=== PATIENT | female | born 1955 | race Caucasian/White ===

== ENCOUNTER → 2016-03-13 | Outpatient (CLI) | payer MEDICARE | LOC: GMAJ 15:00 | PROVIDERS: ATTEND Family Medicine | DX: N18.3 Chronic kidney disease, stage 3 (moderate) (principal) ==

== ENCOUNTER → 2016-03-22 | Outpatient (CLI) | payer MEDICARE | LOC: GMAJ 13:08 | PROVIDERS: ATTEND Family Medicine | DX: N18.3 Chronic kidney disease, stage 3 (moderate) (principal) ==

== ENCOUNTER → 2016-04-02 | Outpatient (CLI) | payer MEDICARE | LOC: GMAJ 15:49 | PROVIDERS: ATTEND Family Medicine | DX: R30.0 Dysuria (principal) ==

== ENCOUNTER → 2016-04-29 | Outpatient (CLI) | payer MEDICARE | END | disposition home or self-care (01) | LOC: GMAJ 10:16 | PROVIDERS: ATTEND Family Medicine | DX: E03.9 Hypothyroidism, unspecified (principal) ==

== ENCOUNTER 2016-05-14 17:56 | Inpatient (IN) | payer MEDICARE ==
[2016-05-14] MEDS ORDERED: ONDANSETRON INJ 4 MG/2 ML VIAL IV ONE (18:19)
[2016-05-14] MEDS ORDERED: SODIUM CHLORIDE 0.9% 250ML 250 ML IVS ONE (18:19)
--- NOTE | 2016-05-14 18:23 | ED.PDOC ---
History of Present Illness - General Chief Complaint: GI Problem Stated Complaint: vomiting,diarrhea Time Seen by Provider: 05/14/16 18:10 Source: patient Exam Limitations: no limitations - History of Present Illness Initial Comments: Patient presents with 1 1/2 weeks of N/V/D. She says the vomiting typically occurs just after a meal. It is non-bilious. Her diarrhea is non-bloody. She has bilateral lower abdominal pain that is constant and cramping. It improves after vomiting but she has not noticed a difference after a bowel movement. She had a previous episode 6 months ago. No other associated symptoms. She has IDDM and says that her blood sugars have been running high the past two days despite very little food intake. No sick contacts. No urinary sx. No recent antibiotic use. Timing/Duration: other - 1 1/2 weeks Severity: moderate Improving Factors: nothing Worsening Factors: eating Associated Symptoms: nausea/vomiting, other - diarrhea Allergies/Adverse Reactions: Allergies Sulfa Antibiotics Allergy (Severe, Verified 08/19/15 19:07) Vomitting Home Medications: Ambulatory Orders HYDROcodone 10MG/APAP 325MG [[place] 10/325] 1 tab PO QID 11/11/13 Spironolactone [Aldactone] 25 mg PO DAILY #30 tab 10/03/14 Levothyroxine Sodium [Synthroid] 200 mcg PO DAILY@0700 05/17/15 Furosemide [Lasix] 40 mg PO BID 05/14/16 Insulin Aspart [Novolog Flexpen] 10 unit SC TIDFD 05/14/16 Insulin Detemir [Levemir Pen] 25 units SUBCU BEDTIME 05/14/16 Metolazone 2.5 mg PO DAILY 05/14/16 Potassium Chloride [K-Tab] 20 meq PO QAM 05/14/16 Review of Systems - Review of Systems Constitutional: States: see HPI EENTM: States: no symptoms reported Respiratory: States: no symptoms reported Cardiology: States: no symptoms reported Gastrointestinal/Abdominal: States: no symptoms reported Genitourinary: States: no symptoms reported Musculoskeletal: States: no symptoms reported Skin: States: no symptoms reported Neurological: States: no symptoms reported Endocrine: States: see HPI Hematologic/Lymphatic: States: no symptoms reported Past Medical History (General) - Patient Medical History Hx Seizures: No Hx Stroke: Yes - Per Medical record Hx Asthma: No Hx of COPD: Yes Hx Cardiac Disorders: Yes - CHF Hx Congestive Heart Failure: Yes Hx Pacemaker: No Hx Hypertension: Yes Hx Thyroid Disease: Yes Hx Diabetes: Yes Hx Gastroesophageal Reflux: Yes Hx Renal Disease: - Spot on one of kidneys however, unsure which one. Hx Cancer: Yes - Cervical Hx Hepatitis C: No Hx MRSA: No Surgical History: Hysterectomy - Vaccination History Hx Tetanus, Diphtheria Vaccination: No Hx Influenza Vaccination: No Hx Pneumococcal Vaccination: No - Social History Hx Tobacco Use: Yes Hx Chewing Tobacco Use: No Hx Alcohol Use: No Hx Substance Use: No Hx Substance Use Treatment: No Hx Depression: No Hx Physical Abuse: No Hx Emotional Abuse: No Hx Suspected Abuse: No - Female History Patient : No Family Medical History - Family History Mother Family History: Unknown Name: pt adopted Physical Exam - Physical Exam General Appearance: Alert Ears, Nose, Throat: normal ENT inspection Neck: non-tender, full range of motion, supple Respiratory: wheezing, other - expiratory wheezing in all lung mensah Cardiovascular/Chest: regular rate, rhythm Gastrointestinal/Abdominal: normal bowel sounds, non tender, soft Back Exam: no CVA tenderness Extremity: no pedal edema Neurologic: managing consultant clinical professor II-XII nml as tested, no motor/sensory deficits, alert Skin Exam: normal color Lymphatic: no adenopathy Progress - Progress Progress: 05/14/16 19:59 Patient received NS 250 ml IV bolus and zofran 4 mg IV x one. Cr was 2.72 which represents acute renal insufficiency for her. Blood sugar 272. CT abdomen/pelvis without contrast showed no acute gastrointestinal pathology but there was a questionable area of attenuation at the level of the spleen. Patient admitted for dehydration and PREET. Laboratory Tests 05/14/16 18:30 WBC 11.8 H RBC 5.51 H Hgb 16.3 H Hct 48.3 H MCV 87.6 MCH 29.5 MCHC 33.8 RDW 15.7 H Plt Count 240 MPV 7.9 Absolute Neuts (auto) 8.80 H Absolute Lymphs (auto) 1.90 Absolute Monos (auto) 0.80 Absolute Eos (auto) 0.20 Absolute Basos (auto) 0.10 Neutrophils % 74.8 Lymphocytes % 16.3 L Monocytes % 6.8 Eosinophils % 1.3 Basophils % 0.8 Sodium 139 Potassium 5.0 Chloride 102 Carbon Dioxide 27 Anion Gap 15.0 BUN 61 H Creatinine 2.72 H BUN/Creatinine Ratio 22.4 H Random Glucose 272 H Serum Osmolality 304.4 H Calcium 9.3 Total Bilirubin 0.4 AST 15 ALT 13 Alkaline Phosphatase 103 B-Natriuretic Peptide 185.0 H Serum Total Protein 7.7 Albumin 3.4 Globulin 4.3 H Albumin/Globulin Ratio 0.8 L Lipase 24 Urine Color Yellow Urine Appearance Sl cloudy Urine pH 5.5 Ur Specific [place] 1.020 Urine Protein >=300 H Urine Glucose (UA) 250 H Urine Ketones Trace Urine Blood Small H Urine Nitrite Negative Urine Bilirubin Negative Urine Urobilinogen 0.2 Ur Leukocyte Esterase Negative Urine RBC 0-1 Urine WBC 0-1 Ur Epithelial Cells 0-1 Amorphous Sediment 1+ Urine Bacteria 0 Departure - Departure Clinical Impression: Diarrhea, Vomiting, Moderate dehydration Disposition: Admit Patient Condition: Good Departure Forms: ED Discharge - Pt. Copy, Patient Portal Self Enrollment Diet: other - advance diet as per hospitalist Home Medications: Ambulatory Orders HYDROcodone 10MG/APAP 325MG [[place] 10/325] 1 tab PO QID 11/11/13 Spironolactone [Aldactone] 25 mg PO DAILY #30 tab 10/03/14 Levothyroxine Sodium [Synthroid] 200 mcg PO DAILY@0700 05/17/15 Furosemide [Lasix] 40 mg PO BID 05/14/16 Insulin Aspart [Novolog Flexpen] 10 unit SC TIDFD 05/14/16 Insulin Detemir [Levemir Pen] 25 units SUBCU BEDTIME 05/14/16 Metolazone 2.5 mg PO DAILY 05/14/16 Potassium Chloride [K-Tab] 20 meq PO QAM 05/14/16
[2016-05-14] MEDS ORDERED: SODIUM CHLORIDE 0.9% 1000ML 1,000 ML IVS PRN ×2 (19:33→21:26)
[2016-05-14] MEDS ORDERED: SODIUM CHLORIDE 0.9% 1000ML 1,000 ML ONE (19:35)
--- NOTE | 2016-05-14 19:51 | CT ---
EXAM DESCRIPTION: CT Abdoment/Pelvis w/o Contrast CLINICAL HISTORY: N/V/D abdominal pain COMPARISON: August 08, 2013 June 07, 2014 TECHNIQUE: Contiguous axial images of the abdomen and pelvis were obtained followed by reconstruction images. FINDINGS: There are bilateral low-attenuation masses, with Hounsfield units of zero and -4, within the adrenal glands compatible with adrenal adenomas, both measuring approximately 4 cm. There is atherosclerosis. There are nonobstructive calcification projecting within the renal hilum bilaterally. There is no hydronephrosis. Patient is status post hysterectomy. Calcifications within the pelvis compatible with phleboliths. There is an umbilical hernia with fatty component only. There is a small hepatic cyst. There is a focal area of low-attenuation within the posterior aspect of the spleen measuring approximately 2.8 cm which could represent a splenic infarct. This is a new finding when compared with the prior exam. If indicated correlation with a contrast enhanced CT recommended. the liver, spleen, pancreas and kidneys are otherwise within normal limits. The gallbladder is unremarkable by CT criteria. Aorta is of normal caliber and tapering. There is no free fluid in the abdomen or pelvis. There is no bowel obstruction. There is no stranding of the mesenteric fat to suggest an inflammatory response. The appendix is within normal limits. There is no pericecal inflammation. IMPRESSION: Area of low-attenuation within the posterior aspect of the spleen, new finding when compared with the prior examination, could be secondary to splenic infarct of unknown age. The adjacent fat is within normal limits. If indicated correlation with a contrast enhanced CT recommended. Electronically signed by: Kiko Jean MD 05/14/2016 7:49 PM CDT
--- NOTE | 2016-05-14 20:20 | HP ---
SUPERVISING PHYSICIAN: Chandra Crespo MD CHIEF COMPLAINT: Nausea, vomiting, diarrhea. HISTORY OF PRESENT ILLNESS: Ms. Souza is a 60-year-old, female that presented to the Emergency Department complaining of over seven days of nausea, vomiting and diarrhea. She notes the vomiting typically occurs after she eats a meal. She denies any bloody diarrhea. She does have some bilateral lower abdominal pain that appears to be constant and cramping, but improves after vomiting. She has not noticed any difference in her bowel movements. She notes she has had these previous episodes six months ago, last being admitted in January. Her history is significant for insulin dependent diabetes mellitus and notes her blood sugars have been fairly poorly controlled in the last several days although she denies withholding any food and continues utilize her insulin. She denies any family contacts that are ill and has not been on any recent antibiotics. Additional significant history is that she has chronic renal disease, stage 3, that is being followed by Dr. Chang. Today in the Emergency Department laboratory studies showed she had a white count of 11.8 with chemistries indicating an elevated BUN of 61 as well as creatinine of 2.72. Lipase was normal at 24. She was afebrile on presentation to the Emergency Department, however, she was quite hypertensive because she had not been taking her medications over the last several days which included multiple diuretics and lisinopril. With her history of diabetes controlled by insulin and multiple days of inability to hold any significant oral intake in and notable increase in her BUN and creatinine, the patient is to be admitted for further treatment, evaluation and initiation of IV therapy to assist with rehydration. She was admitted to the Medical/Surgical Floor in stable condition. PAST MEDICAL HISTORY: 1. Chronic renal disease, stage 3, by history. 2. Chronic congestive heart failure, diastolic, with last documented ejection fraction noted on 10/20/14 at 60%. 3. Diabetes mellitus, type 2, on insulin therapy, poorly controlled. She has been on insulin for over three years. 4. History of hypertension. 5. History of hematuria. 6. Chronic obstructive pulmonary disease in a chronic smoker. 7. Chronic pain management on hydrocodone. 8. Hypothyroidism after thyroid goiter removed by surgery. 9. History of gastroesophageal reflux disease. 10. Opioid induced constipation. PAST SURGICAL HISTORY: 1. Thyroidectomy with portion of thyroid removed resulting in hypothyroidism from surgery to remove a goiter. 2. Hysterectomy/oophorectomy. CURRENT MEDICATIONS: Please refer to electronic medical record for an updated list of verified medications. ALLERGIES: SULFA DRUGS. FAMILY HISTORY: The patient is adopted, but she knows there is some coronary artery disease and cancers in her family. SOCIAL HISTORY: The patient is disabled. She has worked at [employer] in the past. She currently smokes approximately one pack a day of cigarettes. She lives at home with her . She denies any alcohol or illicit drug use. REVIEW OF SYSTEMS: CONSTITUTIONAL: Denies any significant fevers, chills. She notes she has had some weakness over the last several days. HEENT: No complaints. RESPIRATORY: No significant shortness of breath. She has a history of congestive heart failure and has some shortness of breath with exertional effort , but reports no cough or shortness of breath currently. CARDIOVASCULAR: Denies significant chest pain or palpitations. She does have a history of congestive heart failure with episodes of anasarca in the past and is on multiple diuretics. GASTROINTESTINAL: Significant as in history of present illness for nausea, vomiting with some diarrhea in the last 24 hours with a history of chronic constipation. She denies any faisal blood or hemoptysis. GENITOURINARY: Denies dysuria. EXTREMITIES: She does have a history of lower extremity edema, but notes she has not had any increasing edema in the last week or so. NEUROLOGIC: She reports no focal motor deficits, but is quite weak secondary to poor oral intake. PHYSICAL EXAMINATION: VITAL SIGNS: Temperature 96.5. Pulse 69. Initial blood pressure in the Emergency Department was 204/76. Respirations 20. O2 saturation 96% on room air. After treatment in the Emergency Room, blood pressure at time of admission to the Medical/Surgical Floor was 195/74. Respirations 18. Other 95 % on room air. Admission weight 71.2 kg. GENERAL: The patient appears to be in no acute distress, but she does look dehydrated and weak. HEENT: Tympanic membranes clear bilaterally. Oropharynx is pink, but dry mucous membranes. No notable lesions. She does have mild exophthalmia noted, which is chronic. NECK: No jugular venous distention noted. The patient does have history of hypothyroidism and a previous goiter. CHEST: Lungs clear to auscultation bilaterally without any rhonchi, wheezes, or rales. CARDIOVASCULAR: Regular rate and rhythm without any appreciable murmurs, gallops, or rubs. ABDOMEN: Obese, but, nontender. There is no rebound tenderness. Positive bowel sounds. EXTREMITIES: There is no notable edema, cyanosis or clubbing. NEUROLOGIC: The patient is alert and oriented times three. There are no focal neuromotor deficits noted. LABORATORY: White count on admission 11.8, hemoglobin 16.3, hematocrit 40.3, platelet count 240,000, differential showed no left shift. Chemistries initially showed normal electrolytes with potassium 5.0, BUN elevated at 61, creatinine 2.72, serum osmolality 304. Liver functions were within normal limits. BNP was slightly elevated at 185, magnesium 2.6. Urine showed greater than 300 protein with 250 glucose, small amount of blood. Microscopic was within normal limits. Serum ketones were negative. RADIOLOGY: Abdominopelvic CT without contrast prior to admission and per radiology interpretation was noted a low area of attenuation within the posterior aspect of the spleen, which is a new finding compared to previous examinations which could be secondary to splenic infarction of unknown age. Adjacent fat was within normal limits. No other acute processes were noted. ASSESSMENT: 1. Nausea and vomiting for multiple days with poor oral intake and inability to take oral medications, unknown etiology, possibly secondary to complications of diabetes to include gastroparesis versus gastritis versus a viral infection. 2. Leukocytosis, likely secondary to some demargination from active emesis within the last 24 to 48 hours versus possible viral gastroenteritis. 3. Type 2 diabetes mellitus on insulin, poorly controlled, possibly contributing to #1 from complications such as gastroenteritis. 4. Possible splenic infarct as noted on CT findings which could possibly contribute to some degree of her nausea and vomiting, although the patient is without any significant abdominal pain. 5. History of chronic congestive heart failure with diastolic component with last ejection fraction noted in October 2014 to be 60% with elevated BNP on admission. 6. History of chronic renal failure, stage 3, currently being followed by Dr. Chang. 7. Moderate dehydration secondary to #1, possibly exacerbating her renal insufficiency, elevating her BUN and creatinine secondary to multiple days of emesis and diarrhea with poor oral intake. 8. Chronic obstructive pulmonary disease in a chronic smoker. 9. Hypertension, poorly controlled secondary to poor medication regimen due to current illness with nausea and vomiting. 10. Chronic pain status on opioids. 11. History of opioid induced constipation with intermittent episodes of diarrhea. PLAN: The patient will be placed in observation tonight and started on IV therapy to assist with hydration. Given that she has a significant history of anasarca and congestive heart failure, we will slowly hydrate her with half normal saline at 80 an hour. She was given an initial 250 mL bolus of normal saline in the Emergency Department. We will start on Protonix IV as well as Zofran to assist with limiting nausea and vomiting. Stool workup is pending should she have a significant amount of diarrhea to include stool cultures, leukocytes, occult blood, and Giardia antigens. Plan to reevaluate in the morning with an abdominal series, upright and flat and repeat laboratory studies including CBC, lipase, and CMP. We will continue to monitor the patient closely. Anticipate length of stay to be 1 to 2 days. Until then, we will continue to monitor the patient closely and treat appropriately. Dr. Crespo is the collaborating physician and available for consultation. #[id number] #[id number] [facility]
[2016-05-14] MEDS ORDERED: DEXTROSE 50% 25 GM/50 ML SYG IV PRN (21:21)
[2016-05-14] MEDS ORDERED: GLUCAGON INJ 1 MG VIAL SUBCU PRN (21:21)
[2016-05-14] MEDS ORDERED: ONDANSETRON INJ 4 MG/2 ML VIAL IV PRN (21:21)
[2016-05-14] MEDS ORDERED: ACETAMINOPHEN 325 MG TAB PO PRN (21:21)
[2016-05-14] MEDS ORDERED: SODIUM CHLORIDE 0.45% 1000ML 1,000 ML IVS PRN (21:29)
[2016-05-14] MEDS ORDERED: IV SET AND CAP CHANGE INJ INJ SCH (21:30)
[2016-05-14] MEDS ORDERED: NICOTINE PATCH 21 MG TD SCH (22:30)
[2016-05-14] MEDS ORDERED: PANTOPRAZOLE SODIUM IV 40 MG VIAL IV SCH (23:00)
[2016-05-15] MEDS ORDERED: LEVOTHYROXINE SODIUM 0.1 MG TAB ONE (05:26)
[2016-05-15] MEDS: LEVOTHYROXINE SODIUM 0.1 MG TAB PO SCH (06:31)
--- NOTE | 2016-05-15 07:22 | RAD ---
Two view abdomen. Two-view chest. Indication: N/V Comparison: January 13, 2016. Impression: Cardiomegaly. Atherosclerosis aorta. Emphysema with mild left basilar atelectasis. Otherwise, lungs clear. No free air under the diaphragm. Multiple surgical clips mid abdomen. Several loops of mildly dilated air-filled small bowel in the midabdomen measuring up to 3.3 cm. Early small bowel obstruction not excluded. No constipation. Multiple surgical clips in the pelvis. Degenerative changes of the spine noted. Electronically signed by: Nelson Kaplan MD 05/15/2016 7:21 AM CDT
[2016-05-15] MEDS: INSULIN LISPRO 100 UNITS/ML PEN SUBCU SCH ×4 (07:45→21:37)
--- NOTE | 2016-05-15 10:39 | PN ---
SUPERVISING PHYSICIAN: Chandra Crespo MD DATE: 05/15/16 SUBJECTIVE: The patient is lying in bed. She complain of hunger, but she did say that she has not been able to keep anything down. Yesterday, she had some diarrhea, but has not had any stool since then. OBJECTIVE: VITAL SIGNS: Afebrile. Heart rate 61. Blood pressure 163/74. It has gotten as high as 182/70. Respiratory rate 18. O2 saturation has gotten as low as 90% on 2 liters nasal cannula and is now 93%. LUNGS: Clear to auscultation bilaterally. CARDIAC: Regular rate and rhythm. ABDOMEN: Diffusely tender, but very mild. Soft, nondistended. Bowel sounds are positive. EXTREMITIES: No cyanosis or clubbing. She does have a trace of edema on bilateral lower extremities. NEUROLOGIC: Awake, alert and oriented times three. LABORATORY: Sodium 135, potassium 4.9, chloride 107, carbon dioxide 22, BUN 55 , creatinine has come down from 2.72 to 2.17. Glucose 383, serum osmolality 301 , calcium 8.2, magnesium 2.6, serum total protein 5.5, albumin 2.5. White count has normalized down from 11.8 yesterday to 9.2 today. Hemoglobin 14, hematocrit 42, platelet count 180, neutrophils 64.3. Chest x-ray and two view abdomen show cardiomegaly and emphysema with mild left basilar atelectasis. No free air under the diaphragm. Several loops of mildly dilated air-filled small bowel in the mid abdomen measuring up to 3.3 cm with early small bowel obstruction not excluded. No constipation. All other labs and films have been reviewed via the EMR. ASSESSMENT: 1. Nausea and vomiting for multiple days with poor oral intake and inability to take oral medications, unknown etiology, possibly secondary to complications of diabetes to include gastroparesis versus gastritis versus a small bowel obstruction. 2. Small bowel obstruction per abdominal x-ray today. 3. Leukocytosis, now normalized. 4. Possible splenic infarct as noted on CT findings which could possibly contribute to some degree of her nausea and vomiting, although the patient is without any significant abdominal pain. 5. Type 2 diabetes mellitus on insulin. 6. History of chronic congestive heart failure with diastolic component with last ejection fraction noted in October 2014 to be 60% with elevated BNP on admission. 7. History of chronic renal failure, stage 3, currently being followed by Dr. Chang. 8. Moderate dehydration secondary to #1, possibly exacerbating her renal insufficiency, elevating her BUN and creatinine secondary to multiple days of emesis and diarrhea with poor oral intake. 9. Chronic obstructive pulmonary disease in a chronic smoker. 10. Hypertension, poorly controlled secondary to poor medication regimen due to current illness with nausea and vomiting. 11. Chronic pain status on opioids. 12. History of opioid induced constipation with intermittent episodes of diarrhea. PLAN: We will change to an inpatient status. We will continue supportive care. She will be placed NPO and I have spoken to Dr. Chang, her oracle data warehouse developer, in [place]. He recommended that she be put on D5 NS at 125 mL per hour. I have also spoken to Dr. Santoro and he has been consulted for the small bowel obstruction. She will be NPO. I will repeat her labs as well as her abdominal x-ray in the morning. We will continue to encourage good pulmonary toilet and frequent ambulation. Dr. Crespo is the collaborating physician and available for consultation. #[id number] [facility]
[2016-05-15] MEDS: DEX 5% W/NACL 0.9% 1000ML 1,000 ML IVS PRN ×2 (10:47→20:45)
[2016-05-15] MEDS: HYDROmorphone HCL INJ 2 MG/ML VIAL IV PRN ×2 (12:36→19:46)
[2016-05-15] MEDS ORDERED: BISACODYL TAB 5 MG TAB PO ONE ×2 (13:34→14:36)
--- NOTE | 2016-05-15 14:07 | CONS ---
DATE OF CONSULTATION: 05/15/16 HISTORY OF PRESENT ILLNESS: The patient is a 60-year-old female patient on the hospitalist service who was admitted yesterday with at least a 7 day history of nausea, vomiting and diarrhea. She denied fever or chills. She denies blood per rectum or in her vomitus. She complains of crampy abdominal pain that improves after vomiting. She has noticed no melanotic stools. She had a previous episode like this 6 months ago. She also notes that her blood sugars have been poorly controlled over the last few days. There is no one else in the family that has been sick and she has been on no recent antibiotics. She is also a patient of Dr. Chang for chronic renal disease. PAST MEDICAL HISTORY: 1. Chronic renal disease. 2. Congestive heart failure. 3. Diabetes mellitus, type 2. 4. Hypertension. 5. History of hematuria. 6. Chronic obstructive pulmonary disease. 7. Chronic pain. 8. Hypothyroidism. 9. Gastroesophageal reflux. PAST SURGICAL HISTORY: 1. Thyroidectomy. 2. Hysterectomy with oophorectomy. MEDICATIONS: As documented in the medical record. ALLERGIES: SULFA MEDICATIONS. FAMILY HISTORY: The patient is adopted, but knows there is coronary artery disease and some unknown cancers in her family. SOCIAL HISTORY: The patient is disabled and worked in [employer] in the past. She smokes one pack a day and has for greater than 30 years. She lives at home with her . She denies alcohol or other drug use. REVIEW OF SYSTEMS: Negative except as in the history of present illness. PHYSICAL EXAMINATION: GENERAL: The patient is awake, alert, cooperative. She looks uncomfortable. VITAL SIGNS: The patient is currently afebrile, normotensive. HEENT: Sclerae nonicteric. Mucous membranes moist. NECK: Without adenopathy. BACK: Without CVA tenderness. CHEST: Equal breath sounds bilaterally. HEART: Regular rate and rhythm. ABDOMEN: Soft. There is mild diffuse tenderness without mass or guarding. PELVIC/RECTAL: Deferred. EXTREMITIES: Without cyanosis, clubbing or edema. LABORATORY: Urine on admission with specific gravity 1.020, otherwise clear. Chemistries this morning revealed potassium 4.9, magnesium 2.6 yesterday and elevated. Creatinine 2.17, sodium 135, blood sugars have run from 160 to 380. White blood cell count on admission was 11.8 and is 9.2 this morning. Hemoglobin was down from 16.3 to 14, platelet count 180. She has 64% neutrophils. CT and x-rays revealed a large amount of stool with no obvious obstruction or other inflammatory process. Her CT scan was consistent with gastroparesis with a large fluid-filled stomach. ASSESSMENT: 1. Probable obstipation, constipation and gastroparesis causing a combination of symptoms. 2. Poor control of her hyperglycemia. 3. Multiple other health issues. RECOMMENDATION: Proceed with gentle catharsis from above and below. We will start Reglan IV and start her on a diabetic clear liquid diet and follow the patient symptomatically and possibly with further x-ray exam. #[id number] [facility]
[2016-05-15] MEDS: METOCLOPRAMIDE HCL INJ 10 MG/2 ML VIAL IV SCH ×2 (17:12→20:51)
[2016-05-15] MEDS ORDERED: NICOTINE PATCH 21 MG TD ONE (19:32)
[2016-05-15] MEDS ORDERED: PANTOPRAZOLE SODIUM IV 40 MG VIAL ONE (19:34)
[2016-05-15] MEDS ORDERED: INSULIN DETEMIR 100 UNITS/ML PEN SUBCU ONE (19:34)
[2016-05-15] MEDS: SODIUM CHLORIDE 0.9% 10 ML VIAL IV PRN (19:45)
[2016-05-15] MEDS: SODIUM CHLORIDE 0.9% (FLUSH) 10 ML SYG IV PRN ×2 (19:46→20:51)
[2016-05-15] MEDS: NICOTINE PATCH 21 MG TD SCH (20:52)
[2016-05-15] MEDS: PANTOPRAZOLE SODIUM IV 40 MG VIAL IV SCH (20:52)
[2016-05-15] MEDS: INSULIN DETEMIR 100 UNITS/ML PEN SUBCU SCH (21:36)
[2016-05-16] MEDS: SODIUM CHLORIDE 0.9% (FLUSH) 10 ML SYG IV PRN (02:39)
[2016-05-16] MEDS: HYDROmorphone HCL INJ 2 MG/ML VIAL IV PRN ×2 (02:40→17:41)
[2016-05-16] MEDS: DEX 5% W/NACL 0.9% 1000ML 1,000 ML IVS PRN (04:58)
[2016-05-16] MEDS: LEVOTHYROXINE SODIUM 0.1 MG TAB PO SCH (06:22)
[2016-05-16] MEDS ORDERED: cloNIDine HCL 0.1 MG TAB ONE (06:33)
[2016-05-16] MEDS ORDERED: cloNIDine HCL 0.1 MG TAB PO ONE ×3 (06:36→12:01)
[2016-05-16] MEDS: METOCLOPRAMIDE HCL INJ 10 MG/2 ML VIAL IV SCH ×2 (06:43→12:49)
--- NOTE | 2016-05-16 07:08 | RAD ---
EXAM DESCRIPTION: Abdomen, 2 radiographs CLINICAL HISTORY: Small bowel obstruction. Abdominal pain and distention FINDINGS/ IMPRESSION: Comparison 05/15/2016 Scattered large and small intestinal bowel gas without dilation to suggest mechanical bowel obstruction. Numerous surgical clips. No organomegaly or obvious abdominal mass lesion. A couple of 2 mm calcifications overlie the right kidney and also stool in the colon. Indeterminate possibly small renal stones. Multiple phleboliths in the pelvis Visualized lungs are clear. No acute bony abnormality Electronically signed by: Tobias Reeves MD 05/16/2016 7:07 AM CDT
[2016-05-16] MEDS: INSULIN LISPRO 100 UNITS/ML PEN SUBCU SCH ×4 (07:26→21:00)
[2016-05-16] MEDS: BISACODYL TAB 5 MG TAB PO SCH ×2 (12:32→17:41)
[2016-05-16] MEDS ORDERED: METOCLOPRAMIDE HCL 5 MG TAB ONE ×2 (12:44→12:46)
[2016-05-16] MEDS: METOCLOPRAMIDE HCL 5 MG TAB PO SCH ×3 (12:45→20:59)
--- NOTE | 2016-05-16 13:33 | PN ---
SUPERVISING PHYSICIAN: Chandra Crespo MD DATE: 05/16/16 SUBJECTIVE: The patient is lying in bed asleep. She awakens easily. She has no complaints of shortness of breath, chest pain, abdominal pain. She does complain that she has a lot of loose stool as well as she is very hungry. I explained to her that she was still quite constipated and that Dr. Santoro would see her with her abdominal issues. I also explained to her that we would be giving her some extra laxatives as well as putting her on some Amitiza for penitentiary help with her constipation. OBJECTIVE: VITAL SIGNS: Afebrile. Pulse 53. Blood pressure 191/74. Respiratory rate 18. O2 saturation 95% on room air. LUNGS: Clear to auscultation bilaterally. CARDIAC: Regular rate and rhythm. ABDOMEN: Soft, nontender, nondistended. Bowel sounds are positive. EXTREMITIES: No cyanosis, clubbing or edema. NEUROLOGIC: Awake, alert and oriented times three. LABORATORY: WBC 9.8, hemoglobin 15, hematocrit 44.9, platelet count 189, neutrophils 70.3. Sodium 138, potassium 4.4, chloride 111, carbon dioxide 22, BUN 36. Creatinine has normalized from 2.17 yesterday to 1.24 today. Glucose 185. Abdominal x-ray still show some constipation and the radiological interpretation shows scattered large and small bowel intestinal gas without dilation to suggest mechanical bowel obstruction. All other labs and films have been reviewed via the EMR. ASSESSMENT: 1. Nausea and vomiting for multiple days with poor oral intake and inability to take oral medications, unknown etiology, possibly secondary to complications of diabetes to include gastroparesis versus gastritis versus a small bowel obstruction. 2. Constipation. 3. Leukocytosis, now normalized. 4. Possible splenic infarct as noted on CT findings which could possibly contribute to some degree of her nausea and vomiting, although the patient is without any significant abdominal pain. 5. Type 2 diabetes mellitus on insulin with poor patient compliance, 6. History of chronic congestive heart failure with diastolic component with last ejection fraction noted in October 2014 to be 60%, 7. History of chronic renal failure, stage 3, currently being followed by Dr. Chang, with a baseline creatinine of about 1.4 to 1.5. 8. Moderate dehydration secondary to #1, now mostly resolved. 9. Chronic obstructive pulmonary disease in a chronic smoker. 10. Hypertension, poorly controlled secondary to poor medication regimen due to current illness with nausea and vomiting. 11. Chronic pain status on opioids. 12. History of opioid induced constipation with intermittent episodes of diarrhea. PLAN: The patient continues to be constipated and I discussed her case with Dr. Santoro. She was unable to hold her enema yesterday, so we will give her some Dulcolax today. I have advanced her diet to a diabetic diet and changed her Reglan from IV to p.o. We will also add some Amitiza in the morning and maybe she can take that daily to help with her chronic constipation. I have added amlodipine for her blood pressure. Hopefully we can get that under control. I will give her clonidine at this point and maybe it will bring her present blood pressure down. Hopefully she can be discharged tomorrow. We will continue to follow her medically and treat as needed. #[id number] [facility]
[2016-05-16] MEDS: SODIUM CHLORIDE 0.9% 10 ML VIAL IV PRN (20:58)
[2016-05-16] MEDS: PANTOPRAZOLE SODIUM IV 40 MG VIAL IV SCH (20:58)
[2016-05-16] MEDS: SODIUM CHLORIDE 0.9% (FLUSH) 10 ML SYG IV SCH (20:58)
[2016-05-16] MEDS: INSULIN DETEMIR 100 UNITS/ML PEN SUBCU SCH (20:59)
[2016-05-16] MEDS ORDERED: amLODIPine BESYLATE 5 MG TAB PO SCH (21:00)
[2016-05-16] MEDS: NICOTINE PATCH 21 MG TD SCH (21:01)
[2016-05-17 06:06] VITALS: TEMP 97.5
[2016-05-17] MEDS: LEVOTHYROXINE SODIUM 0.1 MG TAB PO SCH (06:34)
[2016-05-17] MEDS: INSULIN LISPRO 100 UNITS/ML PEN SUBCU SCH ×2 (07:20→11:45)
[2016-05-17] MEDS: LUBIPROSTONE 24 MCG CAP PO SCH ×2 (07:37→07:38)
[2016-05-17] MEDS: METOCLOPRAMIDE HCL 5 MG TAB PO SCH ×2 (07:38→11:46)
--- NOTE | 2016-05-17 07:58 | RAD ---
EXAM DESCRIPTION: Abdomen Flat Upright CLINICAL HISTORY: Follow-up SBO COMPARISON: 16 May 2016 TECHNIQUE: AP supine and upright views of the abdomen. FINDINGS: Numerous surgical clips are seen scattered about the abdomen. The bowel gas pattern is unremarkable. Phleboliths are observed in the pelvis. No air-fluid levels are observed. No evidence of free intraperitoneal air is seen. No organomegaly is detected. IMPRESSION: Unremarkable abdomen. Electronically signed by: Marcelino Link MD 05/17/2016 7:57 AM CDT
[2016-05-17] MEDS ORDERED: SPIRONOLACTONE 25 MG TAB PO SCH (09:00)
[2016-05-17] MEDS ORDERED: metOLazone 2.5 MG TAB PO SCH (09:00)
[2016-05-17] MEDS ORDERED: FUROSEMIDE 40 MG TAB PO SCH ×2 (09:00→17:00)
[2016-05-17] MEDS ORDERED: amLODIPine BESYLATE 5 MG TAB PO SCH (09:00)
[2016-05-17] MEDS ORDERED: POTASSIUM CHLORIDE 10 MEQ TAB PO SCH (09:00)
[2016-05-17] MEDS: SODIUM CHLORIDE 0.9% (FLUSH) 10 ML SYG IV SCH (09:25)
[2016-05-17] MEDS: HYDROcodone 10MG/APAP 325MG 1 EA TAB PO SCH ×2 (09:25→13:17)
[2016-05-17] MEDS ORDERED: MAGNESIUM HYDROXIDE 30 ML UD PO ONE (10:55)
[2016-05-17 12:23] VITALS: BP 174/69
[2016-05-17 13:52] VITALS: O2SAT 100
--- NOTE | 2016-05-17 19:32 | DS ---
SUPERVISING PHYSICIAN: Chandra Crespo M.D. DISCHARGE DIAGNOSIS: 1. Constipation most likely related to her extensive and detention opioid use , as well as gastroparesis as well as excessive use of antidiarrhea agents. 2. Nausea and vomiting for multiple days with poor oral intake and ability to take oral medications prior to admission which has now resolved. 3. Leukocytosis that has now normalized. 4. Possible splenic infarct as noted on CT findings which could possibly contribute to some degree to her nausea and vomiting, although the patient is without any significant abdominal pain. 5. Type 2 diabetes mellitus on insulin with poor patient compliance. 6. History of chronic congestive heart failure with a diastolic component with last ejection fraction noted in October of 2014 to be 60%. 7. History of chronic renal failure stage III being followed by Dr. Chang with a baseline creatinine of 1.4 to 1.5. 8. Moderate dehydration that has now resolved. 9. Chronic obstructive pulmonary disease in a chronic smoker. 10. Hypertension that is poorly controlled secondary to poor medication regimen. 11. Chronic pain status on opioids. 12. History of opioid-induced constipation with intermittent episodes of diarrhea. HISTORY OF PRESENT ILLNESS: This is a 60 year-old female patient that presented to the Emergency Room complaining of over 7 days of nausea, vomiting and diarrhea. She notes that the vomiting typically occurs after she eats a meal. She denies any bloody diarrhea. She did have some bilateral lower abdominal pain that appeared to be constant and cramping, but it did improve after she vomited. She has had multiple episodes over the last few months and she actually was admitted in January for the same issues. She does have a history of diabetes mellitus type 2 on insulin therapy and her sugars have been poorly controlled. Additionally she has significant chronic renal disease stage III that is being followed by Dr. Chang and a baseline creatinine of 1.4 to 1.5. The Emergency Room lab study showed that she had a white count of 11.8 with chemistries indicating an elevated BUN and a creatinine of 2.72. Lipase was normal at 24. She was afebrile but she was quite hypertensive as she has not been taking her medications over the last several days. She was admitted for further treatment, evaluation and initiation of IV therapy. HOSPITAL COURSE: Her abdominal pain improved over the next several days, although her abdominal x-ray on the second day showed several loops of mildly dilated air-filled small bowel in the mid abdomen measuring up to 3.3 cm with an early small bowel obstruction not excluded. I consulted Dr. Santoro and his evaluation was that she was severely constipated, although with her history a small bowel obstruction could not be excluded. He ordered an enema which she was unable to hold and several laxatives. Today, she is still somewhat constipated but she has had 5 or 6 bowel movements since she has been admitted. After further investigation, she stated that she would often go a week without a bowel movement and at any sign of loose stool she would take Immodium. And in fact last week she had gone a week without a bowel movement and after having 1 small bowel movement she has had some diarrhea and she tooks Imodium for every loose stool. She was given extensive teaching on a diabetic diet and blood sugar control as well as increasing fiber in her diet, and the complications that can be caused by constipation. The patient had to be told multiple times and her understanding of simple instructions is somewhat limited. Her systolic blood pressure was also somewhat elevated to 170-180s during her stay and I spoke with Dr. Chang. He told me to discontinue her Lisinopril and I had already added Amlodipine. Her white count normalized to 9.8 as well as her creatinine today is 1.23. At this point, I believe she is stable enough to be discharged. DISCHARGE PLAN: The patient will be discharged home in stable condition. Dr. Santoro and I talked to her extensively about her gastroparesis as well as her constipation. We strongly encouraged her to not use any antidiarrhea medications. She is to increase her fluids daily and increase her fiber in her diet. In the hospital, she had been given Reglan [address] Santoro suggested that she be sent home on 5 mg a.c. and h.s. At followup Dr. Mendez can decide if she should continue with that medication. I have also added MiraLAX daily as well as Amitiza. I also reiterated compliance with her diabetic diet as well as control of her blood sugars. She is to resume her diabetic diet as well as to increase her activity as tolerated. She has a followup appointment with Dr. Mendez on 05/29/16 at 10:15. DISCHARGE MEDICATIONS: 1. Hydrocodone. 2. Spironolactone. 3. Levothyroxine. 4. Metolazone. 5. Potassium chloride. 6. Furosemide. 7. Levemir. 8. NovoLog. 9. Reglan. 10. MiraLAX. 11. Amitiza. 12. Amlodipine. Dr. Crespo is the collaborating physician and available for consultation. #[id number] [facility]
[2016-05-18] MEDS ORDERED: POTASSIUM CHLORIDE 10 MEQ TAB PO SCH (07:30)
== END 2016-05-17 13:30 | disposition home or self-care (01) | DRG 74 ==
LOC: ER 17:56 → MS 20:19 → OBSVTOIN 05-15 10:21
PROVIDERS: ADMIT Nurse Practitioner Family; ATTEND Nurse Practitioner Family
DX: E11.43 Type 2 diabetes mellitus with diabetic autonomic (poly)neuropathy (principal); K56.60 Unspecified intestinal obstruction; I13.0 Hypertensive heart and chronic kidney disease with heart failure and stage 1 through stage 4 chronic kidney disease, or unspecified chronic kidney disease; I50.32 Chronic diastolic (congestive) heart failure; K31.84 Gastroparesis; K59.03 Drug induced constipation; E11.65 Type 2 diabetes mellitus with hyperglycemia; N18.3 Chronic kidney disease, stage 3 (moderate); E86.0 Dehydration; T40.2X5A Adverse effect of other opioids, initial encounter; D73.5 Infarction of spleen; J44.9 Chronic obstructive pulmonary disease, unspecified; K21.9 Gastro-esophageal reflux disease without esophagitis; E03.9 Hypothyroidism, unspecified; G89.29 Other chronic pain; E11.22 Type 2 diabetes mellitus with diabetic chronic kidney disease; F17.210 Nicotine dependence, cigarettes, uncomplicated; Z66 Do not resuscitate; Z79.4 Long term (current) use of insulin; Z79.891 Long term (current) use of opiate analgesic; Z79.899 Other long term (current) drug therapy; Z86.73 Personal history of transient ischemic attack (TIA), and cerebral infarction without residual deficits; Z88.2 Allergy status to sulfonamides; Y92.9 Unspecified place or not applicable

== ENCOUNTER 2016-05-30 14:34 | Emergency (ER) | payer MEDICARE ==
--- NOTE | 2016-05-30 15:26 | ED.PDOC ---
History of Present Illness - General Chief Complaint: Skin/Abrasion/Tear Stated Complaint: possible diabetic ulcer on L foot Time Seen by Provider: 05/30/16 14:44 Source: patient, RN notes reviewed, Vital Signs reviewed, family Exam Limitations: no limitations - History of Present Illness Initial Comments: Patient noticed a calloused, bruised area on the bottom of her left foot. She and her son are concerned about a diabetic ulcer. Patient is also c/o pain around her L great toenail. Son cut her nails yesterday and she is now having pain. Finally, she would like her right ear looked at due to it also giving her some pain. Timing/Duration: yesterday Severity: mild Location: extremities - L foot Improving Factors: nothing Worsening Factors: nothing Associated Symptoms: denies symptoms Allergies/Adverse Reactions: Allergies Sulfa Antibiotics Allergy (Severe, Verified 08/19/15 19:07) Vomitting Home Medications: Ambulatory Orders HYDROcodone 10MG/APAP 325MG [[place] 10/325] 1 tab PO QID 11/11/13 Spironolactone [Aldactone] 25 mg PO DAILY #30 tab 10/03/14 Levothyroxine Sodium [Synthroid] 200 mcg PO DAILY@0700 05/17/15 Furosemide [Lasix] 40 mg PO BID 05/14/16 Insulin Aspart [Novolog Flexpen] 10 unit SC TIDFD 05/14/16 Insulin Detemir [Levemir Pen] 25 units SUBCU BEDTIME 05/14/16 Metolazone 2.5 mg PO DAILY 05/14/16 Potassium Chloride [K-Tab] 20 meq PO QAM 05/14/16 Lubiprostone [Amitiza] 24 mcg PO BIDFD #60 cap 05/17/16 Metoclopramide HCl [Reglan] 5 mg PO ACHS #120 tab 05/17/16 Polyethylene Glycol 3350 [Miralax] 17 gm PO DAILY #30 pckt 05/17/16 amLODIPine BESYLATE [Norvasc] 10 mg PO DAILY #30 tab 05/17/16 Amoxicillin & Pot Clavulanate [Augmentin] 875 mg PO BID #14 tab 05/30/16 Review of Systems - Review of Systems Constitutional: States: no symptoms reported EENTM: States: ear pain - Right. Denies: ear discharge, nose congestion Respiratory: States: no symptoms reported Cardiology: States: no symptoms reported Gastrointestinal/Abdominal: States: no symptoms reported Genitourinary: States: no symptoms reported Musculoskeletal: States: no symptoms reported Skin: States: see HPI Neurological: States: no symptoms reported Endocrine: States: no symptoms reported Past Medical History (General) - Patient Medical History Hx Seizures: No Hx Stroke: Yes Hx Asthma: No Hx of COPD: Yes Hx Cardiac Disorders: Yes - CHF Hx Congestive Heart Failure: Yes Hx Pacemaker: No Hx Hypertension: Yes Hx Thyroid Disease: Yes Hx Diabetes: Yes Hx Gastroesophageal Reflux: Yes Hx Renal Disease: - Spot on one of kidneys however, unsure which one. Hx Cancer: Yes - Cervical Hx Hepatitis C: No Hx MRSA: No - Vaccination History Hx Tetanus, Diphtheria Vaccination: No Hx Influenza Vaccination: No Hx Pneumococcal Vaccination: No - Social History Hx Tobacco Use: Yes Hx Chewing Tobacco Use: No Hx Alcohol Use: No Hx Substance Use: No Hx Substance Use Treatment: No Hx Depression: No Hx Physical Abuse: No Hx Emotional Abuse: No Hx Suspected Abuse: No - Female History Patient : No Family Medical History - Family History Mother Family History: Unknown Name: pt adopted Physical Exam - Physical Exam General Appearance: Alert, Comfortable, No apparent distress, Well Developed, Well Groomed, Well Hydrated, Well Nourished Eyes, Ears, Nose, Throat Exam: other - R ear - canal obscured by cerumen, L canal and TM are normal. Respiratory: no respiratory distress Extremity: normal capillary refill, inflammation - Distal aspect of L great toe , tender to palpation and mildly erythemaous, swelling - minimal L foot, other - L foot - volar aspect over 5th MTP joint there is a calous with bruising under , firm, no fluctuance, no erythema, no tenderness Neurologic: alert, normal mood/affect, oriented x 3 Skin Exam: warm/dry, normal color Skin Problem Location: lower extremities Lymphatic: no adenopathy Progress - Progress Progress: 05/30/16 16:24 After nurse flushed R ear canal and TM are normal. Will d/c patient home with antibiotics for her toe and instructions for hot salt water soaks 3-5X/day Departure - Departure Clinical Impression: Callus Cellulitis, toe Qualifiers: Laterality: left Qualifier Code: (L03.032) Cellulitis of left toe Time of Disposition: 16:26 Disposition: Discharge to Home or Self Care Condition: Good Instructions: DI for Diabetic Foot Ulcer, Cellulitis Diet: resume usual diet Activity: increase activity as tolerated Prescriptions: Amoxicillin & Pot Clavulanate [Augmentin] 875 mg PO BID #14 tab Home Medications: Ambulatory Orders HYDROcodone 10MG/APAP 325MG [[place] 10/325] 1 tab PO QID 11/11/13 Spironolactone [Aldactone] 25 mg PO DAILY #30 tab 10/03/14 Levothyroxine Sodium [Synthroid] 200 mcg PO DAILY@0700 05/17/15 Furosemide [Lasix] 40 mg PO BID 05/14/16 Insulin Aspart [Novolog Flexpen] 10 unit SC TIDFD 05/14/16 Insulin Detemir [Levemir Pen] 25 units SUBCU BEDTIME 05/14/16 Metolazone 2.5 mg PO DAILY 05/14/16 Potassium Chloride [K-Tab] 20 meq PO QAM 05/14/16 Lubiprostone [Amitiza] 24 mcg PO BIDFD #60 cap 05/17/16 Metoclopramide HCl [Reglan] 5 mg PO ACHS #120 tab 05/17/16 Polyethylene Glycol 3350 [Miralax] 17 gm PO DAILY #30 pckt 05/17/16 amLODIPine BESYLATE [Norvasc] 10 mg PO DAILY #30 tab 05/17/16 Amoxicillin & Pot Clavulanate [Augmentin] 875 mg PO BID #14 tab 05/30/16 Additional Instructions: Hot salt water soaks 3-5X/day Eat yogurt or take a probiotic at lunch every day while on antibiotic.
[2016-05-30 15:37] VITALS: TEMP 98.2
[2016-05-30 16:50] VITALS: BP 154/70; O2SAT 95
== END 2016-05-30 16:40 | disposition home or self-care (01) ==
LOC: ER 14:34
DX: L03.032 Cellulitis of left toe (principal); H92.01 Otalgia, right ear; E11.9 Type 2 diabetes mellitus without complications; K21.9 Gastro-esophageal reflux disease without esophagitis; I11.0 Hypertensive heart disease with heart failure; I50.9 Heart failure, unspecified; J44.9 Chronic obstructive pulmonary disease, unspecified; Z86.73 Personal history of transient ischemic attack (TIA), and cerebral infarction without residual deficits; Z85.41 Personal history of malignant neoplasm of cervix uteri; Z79.4 Long term (current) use of insulin; Z79.899 Other long term (current) drug therapy; Z88.2 Allergy status to sulfonamides